=== PATIENT | male | born 1950 | race Asian ===

== ENCOUNTER 2016-09-28 14:42 | Emergency (ER) | payer MEDICARE, MEDICAID ==
[~2016-09-28] VITALS: Ht 182.9 cm; Wt 81.6 kg
[2016-09-28] MEDS ORDERED: LOSA1TAB36 PO (15:04)
[2016-09-28] MEDS ORDERED: LORA0.5T PO (15:04)
[2016-09-28] MEDS ORDERED: TRAM50TA2 PO (15:04)
[2016-09-28] MEDS ORDERED: TRAZ-144 PO (15:04)
--- NOTE | 2016-09-28 15:28 | NUR ---
DR FERRARO AT THE BEDSIDE FOR EVAL AND EXAM.
[2016-09-28 16:12] LABS: BASOPHILS % (AUTO) 0.4 % (0.0-2.0); EOSINOPHILS % (AUTO) 0.8 % (0.0-7.0); LYMPHOCYTES # (AUTO) 1.3 K/UL (0.8-4.8); LYMPHOCYTES % (AUTO) 24.5 % (20.5-51.5); MEAN CORPUSCULAR HEMOGLOBIN 29.5 UUG (27.0-31.0); MEAN CORPUSCULAR HGB CONC 34 g/dL (32.0-37.0); MONOCYTES # (AUTO) 0.4 K/UL (0.1-1.30); MONOCYTES % (AUTO) 6.8 % (0.0-11.0); NEUTROPHILS # (AUTO) 3.8 K/UL (1.8-8.9); NEUTROPHILS % (AUTO) 67.5 % (38.5-71.5); PLATELET COUNT (AUTO) 294 K/UL (150-450); RED BLOOD CELL COUNT(AUTO) 4.42 MIL/UL (4.7-6.1); RED CELL DISTRIBUTION WIDTH 13.3 % (11.5-14.5); WHITE BLOOD COUNT (AUTO) 5.5 K/UL (4.0-11.2)
[2016-09-28 16:15] LABS: CALCIUM 8.6 mg/dL (8.5-10.1)
[2016-09-28 16:29] LABS: ALBUMIN 3.9 g/dL (3.4-5.0); BILIRUBIN,DIRECT 0.2 mg/dL (0.0-0.2); BILIRUBIN,TOTAL 0.7 mg/dL (0.2-1.0); TOTAL PROTEIN, SERUM 6.8 g/dL (6.4-8.2)
--- NOTE | 2016-09-28 16:53 | NUR ---
ELIZABETH CERNA SPOKE TO DR STEWARD.
[2016-09-28 17:12] VITALS: BP 131/60
== END 2016-09-28 17:13 | disposition home or self-care (01) ==
LOC: ER 15:09
DX: R42 Dizziness and giddiness (principal); I10 Essential (primary) hypertension; F41.9 Anxiety disorder, unspecified; R07.9 Chest pain, unspecified
CPT/HCPCS: 36415; 70030-TC; 71010; 85025; 85730; 93005; A4663

== ENCOUNTER 2017-07-22 10:58 | Emergency (ER) | payer MEDICARE, MEDICAID ==
[~2017-07-22] VITALS: Ht 182.9 cm; Wt 93.9 kg
[~2017-07-22 10:58] MED LIST: LORA0.5T PO; LOSA1TAB36 PO; TRAM50TA2 PO; TRAZ-144 PO
[2017-07-22] MEDS ORDERED: OXYC15TA2 PO (11:08)
--- NOTE | 2017-07-22 11:25 | NUR ---
Pt appears very anxious, family at the bedside.
[2017-07-22] MEDS ORDERED: MORPHINE SULFATE 4 MG/1 ML DISP.SYRIN ONE ×2 (11:42→15:33)
[2017-07-22] MEDS ORDERED: ONDANSETRON 4 MG/2 ML VIAL ONE ×3 (11:43→20:54)
[2017-07-22] MEDS ORDERED: MORPHINE SULFATE 4 MG/1 ML DISP.SYRIN IV ONE ×2 (11:45→15:30)
[2017-07-22] MEDS ORDERED: ONDANSETRON 4 MG/2 ML VIAL IV ONE ×3 (11:45→21:00)
[2017-07-22] MEDS ORDERED: HYDROMORPHONE 4 MG/1 ML DISP.SYRIN ONE ×4 (12:36→20:50)
[2017-07-22] MEDS ORDERED: HYDROMORPHONE 1 MG/1 ML DISP.SYRIN IV ONE ×4 (12:45→21:00)
--- NOTE | 2017-07-22 13:17 | NUR ---
Recieved a call from [facility] transfer center, per Dr Mcdonnell(pt's Ortho surgeon) request Pt needs to be transfered to them. Face sheet faxed and awaiting for transfer center.
--- NOTE | 2017-07-22 15:30 | NUR ---
Spoke to Rhonda(pt's PA) from [facility], she stated ok for pt not to be NPO. Offered food and drink to Pt, poor appetitte.
--- NOTE | 2017-07-22 16:15 | NUR ---
Patient is resting comfortably in bed with eyes closed, NAD noted.
--- NOTE | 2017-07-22 17:30 | NUR ---
PT PROVIDED DINNER BY FAMILY. PT STATES PAIN IS 4/10, AND NO NAUSEA.
--- NOTE | 2017-07-22 17:35 | NUR ---
RN to call transfer center 30 minutes prior to transfer for report.
--- NOTE | 2017-07-22 17:35 | NUR ---
Information for transfer provided by transfer center by [facility]. Pt will be going to room 7110. Pt is aware of transfer and signed paperwork. [facility] called ETA is [phone]. trip # [id number].
--- NOTE | 2017-07-22 18:51 | NUR ---
Report given to Wai at [facility], at [phone].
--- NOTE | 2017-07-22 19:20 | NUR ---
Shift report given to rn shift mgr RN.
--- NOTE | 2017-07-22 19:25 | NUR ---
report received from day shift nurse. pt resting in bed. [id number]. in no acute distress. pt able to speak in clear and complete sentences and make needs known. pt denies any pain at this time.
--- NOTE | 2017-07-22 20:42 | NUR ---
called [facility] for ETA, spoke to Taj and made me aware transport is 5 minutes away. Pt made aware.
--- NOTE | 2017-07-22 20:57 | NUR ---
[facility][id number] here to transport pt to [facility]. report given to kathy. departing vs [facility]n, pt in no acute distress.
== END 2017-07-22 21:18 | disposition short-term general hospital (02) ==
LOC: ER 10:59
DX: S72.002A Fracture of unspecified part of neck of left femur, initial encounter for closed fracture (principal); S72.001A Fracture of unspecified part of neck of right femur, initial encounter for closed fracture; I10 Essential (primary) hypertension; G89.29 Other chronic pain; Z79.891 Long term (current) use of opiate analgesic; Z79.899 Other long term (current) drug therapy; W18.30XA Fall on same level, unspecified, initial encounter; Y93.89 Activity, other specified; Y92.89 Other specified places as the place of occurrence of the external cause; Y99.8 Other external cause status
CPT/HCPCS: 73521; A4663; J1170; J2270; J2405